=== PATIENT | female | born 1970 | race Caucasian/White ===

== ENCOUNTER 2023-11-01 08:15 | Outpatient (RCR) | payer BC, SELFPAY | END 2024-02-29 23:59 | disposition home or self-care (01) | PROVIDERS: PCP Physician Assistant Medical; Visit Provider Physician Assistant Medical | DX: M25.562 Pain in left knee (principal); G89.29 Other chronic pain; M25.662 Stiffness of left knee, not elsewhere classified; R29.898 Other symptoms and signs involving the musculoskeletal system; Z51.89 Encounter for other specified aftercare | CPT/HCPCS: 97110; 97162 ==

== ENCOUNTER 2024-01-16 21:55 | Emergency (ER) | payer BC, SELFPAY ==
[2024-01-16 21:57] VITALS: BP 173/105; PULSE 93; RESP 20; TEMP 36.3; O2SAT 96; BMI 36.3
--- NOTE | 2024-01-16 22:19 | ED.GENADULT ---
HPI - General Adult General Chief complaint: Chest Pain Stated complaint: heartburn/vomited Time Seen by Provider: 01/16/24 21:58 History of Present Illness HPI narrative: This 53-year-old female comes in reporting an episode of vomiting and which she describes as heartburn. She states that she has taken Tums in the past which has provided relief for heartburn symptoms but today her pain was more intense. She did not have any lightheadedness, shortness of breath, diaphoresis. She does not report any exercise intolerance. Related Data Home Medications ?Medication ?Instructions ?Recorded ?Confirmed cetirizine 10 mg tablet 10 mg PO QDAY PRN 03/24/22 01/16/24 fluticasone propionate 50 1 spray intranasal QDAY 03/24/22 03/28/22 mcg/actuation nasal spray,suspension (Flonase Allergy Relief) losartan 50 mg tablet 50 mg PO QDAY 03/24/22 01/16/24 vortioxetine 20 mg tablet 20 mg PO DAILY 01/16/24 01/16/24 (Trintellix) Previous Rx's ?Medication ?Instructions ?Recorded pantoprazole 20 mg tablet,delayed 20 mg PO DAILY #20 tabs 01/16/24 release (Protonix) Allergies Allergy/AdvReac Type Severity Reaction Status Date / Time bupropion Allergy extreme Verified 03/28/22 12:49 anger Sulfa (Sulfonamide Allergy severe low Verified 03/28/22 12:49 Antibiotics) blood platelets 12/30/21 latex AdvReac Rash Verified 03/28/22 12:49 Review of Systems Status of ROS: Reports: 10 or more systems reviewed and unremarkable except as noted in History and below Narrative: Constitutional: No fevers, no weight gain or loss. Eyes: No discharge. No vision changes. HENT: No congestion, no sore throat, no ear pain. Cardiovascular: No palpitations. Respiratory: No shortness of breath, no wheezes, no cough. Gastrointestinal: No abdominal pain, no diarrhea. Genitourinary: No dysuria, no hematuria. Musculoskeletal: Normal range of motion. Skin: No rashes, no pruritis. Neurological: No dizziness, weakness, sensory change, speech change. Endo/Heme/Allergies: No bruising or bleeding. No polydipsia. Pysch: no suicidality, no anxiety, no insomnia. All other systems reviewed and are negative. PFSH PFSH Medical History (Updated 01/16/24 @ 23:28 by Juan Denton MD) Degenerative tear of medial meniscus of left knee ?M23.204 - Derangement of unspecified medial meniscus due to old tear or injury, left knee (ICD-10) Surgical History History of hernia repair ?Z98.890 - Other specified postprocedural states (ICD-10) ?Z87.19 - Personal history of other diseases of the digestive system (ICD-10) History of cholecystectomy ?Z90.49 - Acquired absence of other specified parts of digestive tract (ICD-10) Family History Mother Diabetes Small cell lung cancer Father COPD (chronic obstructive pulmonary disease) Diabetes Social History Smoking Status: Never smoker Do you use any of these nicotine containing products: None Second hand tobacco smoke exposure: No How often do you have a drink containing alcohol: never AUDIT-C Alcohol total score: 0 Non-prescribed substance use: denies use service: No Exam Narrative: Exam Narrative: Constitutional: Well-developed, well-nourished, no acute distress. HEENT: Normocephalic, atraumatic. Neck: Normal range of motion. Nontender. Supple. Heart: Regular. No murmurs. Normal rate. Intact distal pulses. Lungs: Clear to auscultation. No chest discomfort. No wheezes, rhonchi, or rales. Abdomen: Normal bowel sounds. Nontender. No rebound tenderness. Genitalia: Deferred. Back: No midline tenderness. Normal range of motion. Extremities: Normal range of motion. No injury. Skin: Intact. No rash. Warm. No erythema or pallor. Neurologic: No altered sensation. No weakness. Alert and oriented. Psychiatric: No suicidality. No anxiety or depression. No insomnia. Nursing notes and vitals signs are reviewed. Const: Vital Signs, click to edit/add: Vital Signs - 24 hr 01/16/24 21:57 Temperature 97.3 F L Pulse Rate [Pulse Oximeter] 93 Respiratory Rate 20 Blood Pressure [Ri ght Upper Arm] 173/105 H Pulse Oximetry 96 Oxygen Delivery Me thod Room Air Course Vital Signs Vital signs: Initial Vital Signs Temperature 97.3 F L 01/16/24 21:57 Temperature Source Temporal Artery Scan 01/16/24 21:57 Pulse Rate 93 01/16/24 21:57 Respiratory Rate 01/16/24 21:57 Blood Pressure 173/105 H 01/16/24 21:57 Blood Pressure Mean 127 H 01/16/24 21:57 Blood Pressure Position Sitting 01/16/24 21:57 Pulse Oximetry 96 01/16/24 21:57 Oxygen Delivery Method Room Air 01/16/24 21:57 Vital Signs Temperature 97.3 F L 01/16/24 21:57 Pulse Rate 93 01/16/24 21:57 Respiratory Rate 01/16/24 21:57 Blood Pressure 173/105 H 01/16/24 21:57 Pulse Oximetry 96 01/16/24 21:57 Oxygen Delivery Method Room Air 01/16/24 21:57 Temperature 97.3 F L 01/16/24 21:57 Pulse Rate 93 01/16/24 21:57 Respiratory Rate 01/16/24 21:57 Blood Pressure 173/105 H 01/16/24 21:57 Pulse Oximetry 96 01/16/24 21:57 Oxygen Delivery Method Room Air 01/16/24 21:57 Medications Administered Medications: Discontinued Medications Generic Name Dose Route Start Last Admin Trade Name Freq PRN Reason Stop Dose Admin Lidocaine/Aluminum/Magnesium/Simeth 30 ml 01/16/24 22:18 01/16/24 22:26 Gi Cocktail (Visc Lido/Antacid) 30 Ml PO 01/16/24 22:19 30 ml ONCE ONE Administration Medical Decision Making MDM Narrative Medical decision making narrative: This patient comes in with an episode of vomiting and reports a history of heartburn that is not adequately managed with Tums which typically works for her. An EKG was obtained which shows normal sinus rhythm without any ST or T-wave abnormalities. The patient is not showing any other signs or symptoms that would be suspicious for a cardio or pulmonary cause for her symptoms. I did discuss lab and imaging studies with the patient and in a process of shared decision making these were declined for now. She did receive a GI cocktail which brought some relief to her symptoms. She also received an oral dose of Pepcid. I did provide prescription for Protonix as her symptoms are likely due to reflux esophagitis. ECG Data Attestation: I personally reviewed and interpreted this ECG as follows: Interpretation: Normal sinus rhythm. Rate is 85 beats per minute. There are no ST or T-wave abnormalities. Discharge Plan Discharge Clinical Impression: Esophagitis, reflux Patient Disposition: Home, Self-Care Condition: Improved Additional Instructions: Take medication as prescribed and needed. Follow up with MD or return if symptoms are persistent or worsening. Prescriptions: New pantoprazole [Protonix] 20 mg tablet,delayed release (DR/EC) 20 mg PO DAILY Qty: 20 2RF No Action losartan 50 mg tablet 50 mg PO QDAY cetirizine 10 mg tablet 10 mg PO QDAY PRN fluticasone propionate [Flonase Allergy Relief] 50 mcg/actuation spray,suspension 1 spray intranasal QDAY Rx Instructions: administer into each nostril Trintellix 20 mg tablet 20 mg PO DAILY Follow Up/Referrals: Geraldine Garcia PAMicheleC [Primary Care Provider] - Stand Alone Forms: [employer] Info Instructions
[2024-01-16] MEDS: GI COCKTAIL (VISC LIDO/ANTACID) 30 ML PO (22:26)
[2024-01-16] MEDS: FAMOTIDINE 20 MG TABLET PO (23:31)
[2024-01-16 23:37] VITALS: BP 161/96
== END 2024-01-16 23:38 | disposition home or self-care (01) ==
PROVIDERS: Emergency Provider Emergency Medicine Emergency Medical Services; PCP Physician Assistant Medical
DX: K21.00 Gastro-esophageal reflux disease with esophagitis, without bleeding (principal)
CPT/HCPCS: 93005; 99283; 99284; A9270

== ENCOUNTER 2024-05-30 10:20 | Outpatient (CLI) | payer BC, SELFPAY ==
--- NOTE | 2024-05-30 11:31 | W.ANESCHARGE ---
Anesthesia Charges Start Date/Time Anesthesia Start Date: 05/30/24 Anesthesia Start Time: 11:04 Stop Date/Time Anesthesia Stop Date: 05/30/24 Anesthesia Stop Time: 11:29
--- NOTE | 2024-05-30 11:51 | W.ANESCHARGE ---
Anesthesia Charges Start Date/Time Anesthesia Start Date: 05/30/24 Anesthesia Start Time: 11:04 Stop Date/Time Anesthesia Stop Date: 05/30/24 Anesthesia Stop Time: 11:29
== END 2024-05-30 10:21 | disposition home or self-care (01) ==
LOC: OP CLINIC 10:21
PROVIDERS: PCP Physician Assistant Medical; Visit Provider Internal Medicine Gastroenterology
DX: Z12.11 Encounter for screening for malignant neoplasm of colon (principal); D12.0 Benign neoplasm of cecum; D12.8 Benign neoplasm of rectum; K64.8 Other hemorrhoids
CPT/HCPCS: 00811; 45385; 88305; J2704

== ENCOUNTER 2024-09-11 15:27 | Emergency (ER) | payer BC, SELFPAY ==
[2024-09-11] VITALS (36 sets, daily range): BP systolic 138–168; BP diastolic 85–109; PULSE 67–86; RESP 0–33; TEMP 36.3; O2SAT 91–99; BMI 38.4
--- OUTSIDE RECORDS SUMMARY | 2024-09-11 15:29 | XMS_ITS | Clinical Summary ---
Author Organization [employer] [facility] Address [place], [place] [address] Care Team Providers Care Belting Inspector Name Role Phone Geraldine Garcia Primary Care Provider Allergies Active Allergy Reactions Criticality Noted Date Comments Latex Rash 09/23/2009 Sulfa (Sulfonamide Antibiotics) Thrombocytopenia,Oth er - Describe In Comment Field High 12/22/2006 Low blood platelets Bupropion Other - Describe In Comment Field 04/20/2009 agitated with the long acting formulation Medications cetirizine (WAL-ZYR, CETIRIZINE,) 10 mg tabletIndication s:Chronic allergic rhinitis Take 1 tablet by mouth once daily. 90 tablet 3 08/19/19 19 Active traZODone (DESYREL) 50 mg tabletIndication s:Depression, major, single episode, moderate (HC),Insomnia, idiopathic Take 1 Tablet (50 mg) by mouth at bedtime. 90 Tablet 08/02/19 23 Active vortioxetine (Trintellix) 20 mg tabletIndication s:Depression, major, single episode, moderate (HC) TAKE ONE TABLET BY MOUTH EVERY DAY 90 Tablet 1 02/24/20 24 Active polyethylene glycol-electroly te (GOLYTELY) 236-22.74-6.74 -5.86 gram suspensionIndica tions:Encounter for screening colonoscopy Drink 2 liters (1/2 of prep) the day before colonoscopy and drink 2 liters (other 1/2 of prep) 6 hours before colonoscopy appointment. 4000 mL 03/19/20 24 Active fluticasone (50 mcg per actuation) nasal solution (FLONASE)Indicat ions:Non-seasona l allergic rhinitis due to pollen,Acute non-recurrent frontal sinusitis,Acute non-recurrent maxillary sinusitis SPRAY ONE SPRAY INTO EACH NOSTRIL TWICE A DAY. 16 g 5 04/22/20 24 Active CPAPIndications: CHACHO (obstructive sleep apnea) RESMED CPAP (E0601) machine for home use at pressure: 5-15cmw, Choice of mask (A7030 or A7034) w/full face cushion (A7031) x1/mo, nasal cushion (A7032) x2/mo, or nasal pillows (A7033) x 2/mo; Length of Need: 99 months; Frequency of use: Daily 1 Each 04/22/20 24 Active triamcinolone 0.5 % creamIndications :Dermatitis Apply topically to affected area(s) three times daily. 15 g 05/07/20 24 Active buPROPion 75 mg HCl tabletIndication s:Depression, major, single episode, moderate (HC) Take 1 Tablet (75 mg) by mouth once daily. Based on updated ISMP guidelines, DO NOT crush or chew. 90 Tablet 1 07/09/20 24 Active desoximetasone (TOPICORT) 0.05 % gelIndications:C hronic eczema Apply topically to affected area(s) two times daily. 30 g 3 07/09/20 24 Active losartan (COZAAR) 100 mg tabletIndication s:HTN (hypertension) Take 1 Tablet (100 mg) by mouth once daily. 30 Tablet 08/29/19 25 Active losartan (COZAAR) 50 mg tabletIndication s:Essential hypertension Take 1 Tablet (50 mg) by mouth once daily. 90 Tablet 2 05/12/20 24 025 Discontin ued(*Medi cation adjustmen t) lisinopriL (PRINIVIL; ZESTRIL) 10 mg tabletIndication s:HTN (hypertension) Take 1 Tablet (10 mg) by mouth once daily. 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 Fatigue 05/12/2011 Seasonal affective disorder 04/20/2009 Mixed hyperlipidemia 07/31/2007 Obesity, unspecified 07/09/2007 Major depressive disorder, r ecurrent episode, in full remission 07/09/2007 Resolved Problems Problem Noted Date Diagnosed Date Resolved Date Major depressive disorder, r ecurrent episode, unspecified 07/09/2007 07/09/2007 Encounters Date Type Department Care Team Description 09/10/2024 9:15 AM HARBOR TUG CAPTAIN Office Visit [facility] [address] [place] [address] Chichi Luque LICSW Individual Therapy 09/10/2024 Nurse Triage [facility] [address] [place] [address] Geraldine Garcia PA Blood Pressure 09/10/2024 Travel 08/29/2024 Telephone [facility] [address] [place] [address] Geraldine Garcia PA Medication Management (Blood pressure) 08/18/2024 9:15 AM HARBOR TUG CAPTAIN Office Visit [facility] [address] [place] [address] Chichi Luque LICSW Individual Therapy 08/18/2024 Travel 07/16/2024 8:30 AM HARBOR TUG CAPTAIN Office Visit [facility] [address] [place] [address] Chichi Luque LICSW Individual Therapy 07/16/2024 Travel 07/09/2024 3:00 PM HARBOR TUG CAPTAIN Office Visit [facility] [address] [place] [address] Geraldine Garcia PA Medication Management (Follow up on Wellbutrin, going good ) 07/09/2024 Travel 07/02/2024 8:30 AM HARBOR TUG CAPTAIN Office Visit [facility] [address] [place] [address] Chichi Luque LICSW Individual Therapy; Trmt Plan 07/02/2024 Travel 06/25/2024 3:00 PM HARBOR TUG CAPTAIN Office Visit [facility] [address] [place] [address] Gearldine Garcia PA Medication Management (Discuss possible increase or other options) 06/25/2024 Travel 06/19/2024 Telephone [facility] [address] [place] [address] Geraldine Garcia PA Medication Management (vortioxetine (Trintellix) 20 mg tablet) 06/18/2024 9:15 AM HARBOR TUG CAPTAIN Office Visit [facility] [address] [place] [address] Chichi Luque LICSW Individual Therapy 06/18/2024 Travel from Last 3 Months Immunizations Name Administration Dates Next Due Td (Age >=7 Years) 07/30/2009,08/09/2000 Tdap 05/02/2012,05/02/2012 Family History Medical History Relation Name Comments Arrhythmia Brother 2 Kane ablation x 2 Mitral valve prolapse Brother 2 Kane Diabetes Father Ru b 1946; started Insulin 08/2009 Heart Disease Father Ru stents; Pacema ker 07/2009 Hyperlipidemia Father Ru Hypertension Father Ru Other Father Ru COPD Cancer Maternal Grandmother bone Diabetes Maternal Grandmother Cancer Mother Rocoí d 54 yo lung CA Diabetes Mother [place] Diabetes Paternal Grandmother Anesthesia Problem No Family History Blood Disease No Family History Cancer-breast No Family History Cancer-ovarian No Family History Relation Name Status Comments Brother 1 Phani Alive IBS Brother 2 Kane Alive Father Ru Alive Maternal Grandmother Mother Rocío (Age 54) Paternal Grandmother Social History Tobacco Use Types Packs/Day Years Used Date Smoking Tobacco: Never Smokeless Tobacco: Never Tobacco Cessation:Counseling Given: Yes Alcohol Use Standard Drinks/Week Comments Yes 3 (1 standard drink = 0.6 oz pur e alcohol) wine 3-4 glasses/week PHQ-2 Answer Date Recorded PHQ-2 TOTAL SCORE 2 08/02/2022 Social Connections Answer Date Recorded Do you often feel lonely or isolated from those around you? 0 01/17/2024 Financial Resource Strain Answer Date R ecorded Difficulty of Paying Living Expenses 3 01/17/2024 Difficulty of Paying Living Expenses Not on file 01/17/2024 Food Insecurity Answer Date Recorded Do you worry your food will run out before you are able to buy more? 1 01/17/2024 Transportation Needs Answer Date Record ed Does lack of transportation keep you from medica l appointments? 1 01/17/2024 Does lack of transportation keep you from work, meetings or getting things that you need? 1 01/17/2024 Housing Stability Answer Date Recorded What is your housing situation today? 1 01/17/2024 Utilities Answer Date Recorded Do you have trouble paying f or utilities (for example, heat, electricity, water, phone)? 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[employer] Not on file Not on file Not on file Obstetrics History Para Term AB IAB SAB Ectopic Multiple Livin g Live Births 4 3 3 0 1 0 1 0 0 3 Date Outcome GA Total Labor Labor/2nd/3rd Weight Sex Type Anes PTL Neema A1 A5 Name Clin Term Term Term SAB Comments vaginal delivery x3 Last Filed Vital Signs Vital Sign Reading Time Taken Comments Blood Pressure 132/85 07/09/2024 3:15 PM HARBOR TUG CAPTAIN Pulse 90 07/09/2024 3:15 PM HARBOR TUG CAPTAIN Temperature 37.1 C (98.7 F) 09/17/2023 9:00 AM HARBOR TUG CAPTAIN Respiratory Rate - - Oxygen Saturation 97% 04/22/2024 8:39 AM CDT Inhaled Oxygen Concentration - - Weight 112 kg (247 lb) 07/09/2024 3:15 PM HARBOR TUG CAPTAIN Height 166.8 cm (5' 5.67) 04/22/2024 8:39 AM CD T Body Mass Index 40.27 04/22/2024 8:39 AM CDT Plan of Treatment Upcoming Encounters Date Type Department Care Team (Late st Contact Info) Description 09/12/2024 7:50 AM HARBOR TUG CAPTAIN Office Visit [facility] [address] [place] [address] Geraldine Garcia PA [address] [place] [address] 09/17/2024 11:50 AM HARBOR TUG CAPTAIN Office Visit [facility] [address] [place] [address] Geraldine Garcia PA [address] [facility] [place] [address] 10/01/2024 8:30 AM HARBOR TUG CAPTAIN Office [facility] [address] [facility] [place] [phone] Chichi Luque LICSW [address] [place] [address] 10/22/2024 8:30 AM CDT Office Visit [facility] [address] [place] [phone] Chichi Luque LICSW [address] [place] [address] 11/12/2024 8:30 AM CDT Office Visit [facility] [address] [facility] [place] [phone] Chichi Luque LICSW [address] [place] [address] 12/03/2024 8:30 AM CDT Office Visit [facility] [address] [facility] [place] [phone] Chichi Luque LICSW [address] [place] [address] Health Maintenance Due Date Last Done Comments HIV for age 15-65 12/01/1987 Hepatitis C screening for ag e 18-79 1990 Tetanus booster 05/02/2022 05/02/2012, 10/2011, 07/30/2009, Additional history exists Pneumococcal series for age 50+ (1 of 1 - PCV) 2022 Zoster (shingles) series for age 50+ (1 of 2) 2022 Depression screening for age 12+ 08/02/2023 08/02/2022, 08/02/2022, 05/08/2022, Additional history exists COVID-19 vaccine series (1 - 2023- season) 2024 Influenza for age 50-64 03/30/2024 Mammogram for age 45-75 01/20/2025 01/21/20, 01/17/2023, 06/10/2021, Additional history exists BMI (ht and wt on same day) for age 18+ 04/22/2025 04/22/2024, 09/17/2023, 08/20/2023, Additional history exists Pap test for age 21-65 05/31/2026 , 05/31/2021, 04/28/2016, Additional history exists Colonoscopy through age 75 05/30/202705/30, 05/30/2024, 05/30/2024 Lipids for age 45-75 03/04/2029 03/04/2024, 01/17/2023, 04/07/2022, Additional history exists Tdap Completed 05/02/2012, 05/02/2012 Procedures Procedure Name Priority Date/Time Associated Diagnosis Comments COLONOSCOPY SCREENING Routine 05/30/2024 7:28 AM CDT Screening for colon cancer LIPID PANEL W REFLEX MEASURED LDL Routine 03/04/2024 11:21 AM CDT Screening cholesterol level XR MAMMO KIRAN BILAT SCREEN Routine 01/21/2024 4:50 PM CDT Visit for screening mammogram HPV HIGH RISK Routine 05/31/2021 12:34 PM CDT Screening for cervical cancer from Last 3 Months or Most Recently Relevant to Health Maintenance Results * SCAN-COLONOSCOPY (05/30/2024 12:00 AM CDT) us Scanner OTHER Final Result * (ABNORMAL) LIPID PANEL W REFLEX MEASURED LDL (03/04/2024 11:21 AM CDT) CHOLESTEROL,TOTAL 223(H) 100 - 199 mg/dL 03/05/2024 3:39 AM CDT [facility] Comment: Cholesterol, Total Reference Ranges Desirable <200 mg/dL Borderline 200-239 mg/dL High >=240 mg/dL TRIGLYCERIDES 298(H) <150 mg/dL 03/05/2024 3:39 AM CDT [facility] HDL CHOLESTEROL 37(L) >40 mg/dL 3:39 AM CDT [facility] NON-HDL CHOLESTEROL 186(H) <145 mg/dl 03/05/2024 3:39 AM CDT [facility] CHOL/HDL RATIO 6.03(H) <4.50 03/05/2024 3:39 AM CDT [facility] LDL CHOLESTEROL 126 <=130 mg/dL 03/05/2024 3:39 AM CDT [facility] VLDL CHOLESTEROL 60(H) <=30 mg/dL 03/05/2024 3:39 AM CDT [facility] PROVIDER ORDERED STATUS RANDOM 03/05/2024 3:39 AM CDT [facility] Blood BLOOD SPECIMEN / Unknown Venipuncture / Unknown 03/04/2024 11:21 AM CDT 03/04/2024 11:22 AM CDT us Geraldine PIMENTEL CHEMISTRY Final R esult [facility] [address] [place] [address], * XR MAMMO KIRAN BILAT SCREEN (01/21/2024 4:50 PM CDT) Anatomical Region Laterality Modality BREASTS, Breast Left, Breast Right Bilateral Mammography Impressions 01/22/2024 12:48 PM CDT There is no radiographic evidence for malignancy. Recommend annual mammograms. MAMMOGRAM ASSESSMENT: ACR 1 Negative PATIENTS: You will also receive a letter with your examination results in an easy to read format. If you have questions about your results, please contact your referring provider. Narrative 01/22/2024 12:48 PM CDT For Patients: As a result of the Century Cures Act, medical imaging exams and procedure reports are released immediately into your electronic medical record. You may view this report before your referring provider. If you have questions, please contact your health care provider. XR MAMMO KIRAN BILAT SCREEN [[id number]] CLINICAL HISTORY: This is an asymptomatic 53 y.o. patient. INDICATION FOR EXAM: Mammogram Screening. TECHNIQUE: CC & MLO views were obtained. This study was evaluated with the assistance of Computer-Aided Detection. Breast Tomosynthesis was used in interpretation. COMPARISON FILM: Yes 01/17/23 [facility] 06/10/21 [facility] FINDINGS: There are scattered areas of fibroglandular density. There are no dominant masses, suspicious micro calcifications or areas of architectural distortion. us Geraldine PIMENTEL MAMMO Final R esult * HPV HIGH RISK (05/31/2021 12:34 PM CDT) TYPE 16 Negative Negative 06/02/2021 3:09 PM CDT [facility] TYPE 18 Negative Negative 06/02/2021 3:09 PM CDT [facility] OTHER HIGH RISK TYPES Negative Negative 06/02/2021 3:09 PM CDT [facility] Other (Cervical) Non-Blood / Unknown 05/31/2021 12:34 PM CDT 06/01/2021 9:59 AM CDT Narrative [facility] - 06/02/2021 3:09 PM CDT HPV types 16, 18, 31, 33, 35, 39, 45, 51, 52, 56, 58, 59, 66 and 68 DNA were undetectable or below the pre-set threshold. Methodology: Nephrosas 4800 HPV Test us Geraldine PIMENTEL MICROBIOLOGY Final R esult 5 CUPS and some sugar [facility] [address] [place] [address], [place] from Last 3 Months or Most Recently Relevant to Health Maintenance Insurance [facility] Care Teams Belting Inspector Relationship Specialty Start Date End Date Geraldine Garcia [place] [address] PCP - General Physician Film Color Tester 12/08/21
--- OUTSIDE RECORDS SUMMARY | 2024-09-11 15:29 | XMS_ITS | Clinical Summary ---
Author Organization [facility] Address [address] [place] [address] Care Team Providers Care [employer] Name Role Phone Unassigned, Provider Primary Care Provider Unava ilable Source Comments You are receiving this document as you are listed as the primary care provider,follow-up provider, or the patient has been referred to you for consultation.This is in compliance with the Medicare and[facility] EHR Incentive Program,which states Providers who transition their patient to another setting of careor provider of care or refers their patient to another provider of care shouldprovide summary care record for each transition of care or referral. [place] Allergies Active Allergy Reactions Criticality Noted Date Comments Sulfa Antibiotics Other, see comments High 0 Low blood platelets Medications sertraline (ZOLOFT) 50 MG tablet 01/26/2020 Active losartan (COZAAR) 50 MG tablet 02/17/2020 Active Active Problems Problem Noted Date Diagnosed Date Essential hypertension 02/19/2020 Anxiety 02/19/2020 Immunizations Immunization Administration Dates Next Due Flu Vac Preserv Free (3+yrs) 05/21/2013,05/02/20 12,05/18/2011 Influenza, Unspecified Formulation 06/12/2017(De ferred: Other) Tdap 05/02/2012 Social History Tobacco Use Types Packs/Day Years Used Date Smoking Tobacco: Never Smokeless Tobacco: Never PHQ-2 Answer Date Recorded PHQ-2 Score 0 02/19/2020 Comments No Sex and Gender Information Value Date Recorded Sex Assigned at Not on file Legal Sex Female 4:33 AM CDT Gender Identity Not on file Sexual Orientation Not on file Last Filed Vital Signs Vital Sign Reading Time Taken Comments Blood Pressure 141/90 02/19/2020 1:33 PM CDT Pulse 76 02/19/2020 1:33 PM CDT Temperature 36.7 C (98.1 F) 02/19/2020 1:33 PM CDT Respiratory Rate - - Oxygen Saturation 99% 02/19/2020 1:33 PM CDT Inhaled Oxygen Concentration - - Weight 103 kg (227 lb) 02/19/2020 1:33 PM CDT Height 166.4 cm (5' 5.5) 02/19/2020 1:33 PM CDT Body Mass Index 37.2 02/19/2020 1:33 PM CDT Plan of Treatment Health Maintenance Due Date Last Done Comments Cervical Cancer Screening Due 1972 Colon Cancer Screening Plan Due 1972 Hep C Screening (Preventive Services) 1972 Mammogram 1972 HIV Screening (Preventive Services) 1988 Adult Preventive Visit 1990 HepB (1) 12/01/1991 Cholesterol 2017 DTaP/Tdap/Td (2 - Tdap) 05/02/2022 05/02/2012 Zoster/Shingles (1 of 2) 2022 COVID-19 Vaccine (1 - 2023-2 5 season) 2024 Influenza (#1) 2024 05/21/2013, 05/02/2012, 05/18/2011 HepA Aged Out No longer eligi ble based on patient's age to complete this topic Hib Aged Out No longer eligi ble based on patient's age to complete this topic IPV (Polio) Aged Out No longer eligi ble based on patient's age to complete this topic MCV4 Aged Out No longer eligi ble based on patient's age to complete this topic Pneumococcal Aged Out No longer eligi ble based on patient's age to complete this topic Insurance BCBS OUT OF STATE [facility] OUT OF STATE Care Teams [employer] Relationship Specialty Start Date End Date Unassigned, Provider [address] [place] [address] PCP - General 07/07/00
--- NOTE | 2024-09-11 16:30 | ED.GENADULT ---
HPI - General Adult General Time Seen by Provider: 16:30 Date Seen: 09/11/24 Chief complaint: Hypertension Stated complaint: High BP Time Seen by Provider: 09/11/24 16:05 Source: patient and family Limitations: no limitations History of Present Illness HPI narrative: Candice is a 53-year-old female past medical history includes hypertension, hyperlipidemia depression presents emerged department via private car with daughter with elevated blood pressure readings. patient states she noticed elevated blood pressure readings after [place], she was started on losartan 50 mg daily, she continued to have elevated blood pressures and this was increased on 08/29 100 mg daily. patient was also started on a Wellbutrin last May, she denies any new anxiety or depression, she does have stressors. yesterday she was taking her blood pressure because she was feeling unwell, they were elevated, systolics between 140 and 170, diastolics between 100-110. she feels generalized weakness, she did have a headache, she did take Excedrin which helped with the symptoms, this is a typical headache, over he does have follow-up with her primary care provider about these elevated blood pressure readings in the next few weeks. will patient denies any chest pain but has had some worsening difficulty her taking in breaths. she had vomiting over the weekend similar symptoms to with family members, she denies any of that now, no fevers or chills, no nausea vomiting, she denies any chest pain or abdominal pain. patient has been eating and drinking less. patient has had episodes of lightheadedness, she denies any dizziness, she denies any headache at this time. No visual changes, focal weakness or any other deficits. She has no history of any coronary artery disease. Related Data Home Medications ?Medication ?Instructions ?Recorded ?Confirmed cetirizine 10 mg tablet 10 mg PO QDAY PRN 03/24/22 08/03/24 fluticasone propionate 50 1 spray intranasal QDAY 03/24/22 08/03/24 mcg/actuation nasal spray,suspension (Flonase Allergy Relief) losartan 50 mg tablet 50 mg PO QDAY 03/24/22 08/03/24 vortioxetine 20 mg tablet 20 mg PO DAILY 01/16/24 08/03/24 (Trintellix) Previous Rx's ?Medication ?Instructions ?Recorded pantoprazole 20 mg tablet,delayed 20 mg PO DAILY #20 tabs 01/16/24 release (Protonix) azithromycin 250 mg tablet See Rx Instructions PO .COMPLEX #6 09/11/24 tabs azithromycin 250 mg tablet See Rx Instructions PO .COMPLEX #6 09/11/24 tabs Allergies Allergy/AdvReac Type Severity Reaction Status Date / Time bupropion Allergy extreme Verified 08/03/24 13:04 anger Sulfa (Sulfonamide Allergy severe low Verified 08/03/24 13:04 Antibiotics) blood platelets 12/30/21 latex AdvReac Rash Verified 08/03/24 13:04 Review of Systems Status of ROS: Reports: 10 or more systems reviewed and unremarkable except as noted in History and below [facility] Medical History Degenerative tear of medial meniscus of left knee ?M23.204 - Derangement of unspecified medial meniscus due to old tear or injury, left knee (ICD-10) Surgical History History of hernia repair ?Z98.890 - Other specified postprocedural states (ICD-10) ?Z87.19 - Personal history of other diseases of the digestive system (ICD-10) History of cholecystectomy ?Z90.49 - Acquired absence of other specified parts of digestive tract (ICD-10) Family History Mother Diabetes Small cell lung cancer Father COPD (chronic obstructive pulmonary disease) Diabetes Social History Smoking Status: Never smoker Do you use any of these nicotine containing products: None Second hand tobacco smoke exposure: No How often do you have a drink containing alcohol: 2-4 times a month AUDIT-C Alcohol total score: 2 Non-prescribed substance use: denies use service: No Exam Narrative: Exam Narrative: General: no obvious distress sitting comfortably HEENT: pupils equal round reactive to light, extraocular muscles intact lungs: CTA BL heart: normal sinus rhythm S1-S2 abdomen: soft nontender, bowel sounds present muscle skeletal: moving upper lower extremities no difficulty, +5 upper lower extremities Neuro: GCS 15, no focal deficits psych: normal mood and af Const: Vital Signs, click to edit/add: Vital Signs - 24 hr 09/11/24 15:34 09/11/24 15:46 09/11/24 15:47 Temperature 97.3 F L Pulse Rate 79 78 Pulse Rate [Pulse Oximeter] 86 Respiratory Rate 20 Blood Pressure 146/105 H Blood Pressure [Le ft Upper Arm] 165/101 H Blood Pressure [or thostatic lying Le ft Arm] Blood Pressure [or thostatic sitting Left Arm] Blood Pressure [or thostatic standing Left Arm] Pulse Oximetry 96 93 95 Oxygen Delivery Me thod Room Air 09/11/24 16:00 09/11/24 16:02 09/11/24 16:03 Temperature Pulse Rate 76 74 76 Pulse Rate [Pulse Oximeter] Respiratory Rate 15 0 L Blood Pressure 141/97 H Blood Pressure [Le ft Upper Arm] Blood Pressure [or thostatic lying Le ft Arm] Blood Pressure [or thostatic sitting Left Arm] Blood Pressure [or thostatic standing Left Arm] Pulse Oximetry 95 95 93 Oxygen Delivery Me thod 09/11/24 16:15 09/11/24 16:17 09/11/24 16:30 Temperature Pulse Rate 72 71 74 Pulse Rate [Pulse Oximeter] Respiratory Rate 5 L 9 L 5 L Blood Pressure 145/94 H Blood Pressure [Le ft Upper Arm] Blood Pressure [or thostatic lying Le ft Arm] Blood Pressure [or thostatic sitting Left Arm] Blood Pressure [or thostatic standing Left Arm] Pulse Oximetry 96 98 96 Oxygen Delivery Me thod 09/11/24 16:31 09/11/24 16:45 09/11/24 16:47 Temperature Pulse Rate 69 Pulse Rate [Pulse Oximeter] Respiratory Rate 4 L 6 L 8 L Blood Pressure 141/103 H 138/85 Blood Pressure [Le ft Upper Arm] Blood Pressure [or thostatic lying Le ft Arm] Blood Pressure [or thostatic sitting Left Arm] Blood Pressure [or thostatic standing Left Arm] Pulse Oximetry 91 Oxygen Delivery Me thod 09/11/24 16:49 09/11/24 16:50 09/11/24 16:59 Temperature Pulse Rate Pulse Rate [Pulse Oximeter] Respiratory Rate 10 L 30 H Blood Pressure 151/101 H 155/102 H Blood Pressure [Le ft Upper Arm] Blood Pressure [or thostatic lying Le ft Arm] 138/85 Blood Pressure [or thostatic sitting Left Arm] 151/101 H Blood Pressure [or thostatic standing Left Arm] 155/102 H Pulse Oximetry Oxygen Delivery Me thod 09/11/24 17:00 09/11/24 17:02 09/11/24 17:15 Temperature Pulse Rate 79 72 72 Pulse Rate [Pulse Oximeter] Respiratory Rate 11 L 0 L 9 L Blood Pressure 162/109 H Blood Pressure [Le ft Upper Arm] Blood Pressure [or thostatic lying Le ft Arm] Blood Pressure [or thostatic sitting Left Arm] Blood Pressure [or thostatic standing Left Arm] Pulse Oximetry 93 96 [facility] 17:17 09/11/24 17:18 09/11/24 17:30 Temperature Pulse Rate 68 71 76 Pulse Rate [Pulse Oximeter] Respiratory Rate 10 L 18 27 H Blood Pressure 152/94 H Blood Pressure [Le ft Upper Arm] Blood Pressure [or thostatic lying Le ft Arm] Blood Pressure [or thostatic sitting Left Arm] Blood Pressure [or thostatic standing Left Arm] Pulse Oximetry 98 98 95 [facility] 17:32 09/11/24 17:45 09/11/24 17:47 Temperature Pulse Rate 69 69 70 Pulse Rate [Pulse Oximeter] Respiratory Rate 1 L 15 Blood Pressure 167/99 H 162/100 H Blood Pressure [Le ft Upper Arm] Blood Pressure [or thostatic lying Le ft Arm] Blood Pressure [or thostatic sitting Left Arm] Blood Pressure [or thostatic standing Left Arm] Pulse Oximetry 97 98 99 [facility] 18:00 09/11/24 18:02 09/11/24 18:15 Temperature Pulse Rate 77 73 67 Pulse Rate [Pulse Oximeter] Respiratory Rate 33 H 10 L 12 Blood Pressure 164/99 H Blood Pressure [Le ft Upper Arm] Blood Pressure [or thostatic lying Le ft Arm] Blood Pressure [or thostatic sitting Left Arm] Blood Pressure [or thostatic standing Left Arm] Pulse Oximetry 96 96 96 [facility] 18:17 09/11/24 18:30 09/11/24 18:32 Temperature Pulse Rate 70 72 74 Pulse Rate [Pulse Oximeter] Respiratory Rate 9 L 8 L 12 Blood Pressure 161/100 H 168/100 H Blood Pressure [Le ft Upper Arm] Blood Pressure [or thostatic lying Le ft Arm] Blood Pressure [or thostatic sitting Left Arm] Blood Pressure [or thostatic standing Left Arm] Pulse Oximetry 97 96 97 Oxygen Delivery Me thod 09/11/24 18:45 09/11/24 18:47 09/11/24 19:00 Temperature Pulse Rate 68 73 73 Pulse Rate [Pulse Oximeter] Respiratory Rate 9 L 10 L 9 L Blood Pressure 165/99 H Blood Pressure [Le ft Upper Arm] Blood Pressure [or thostatic lying Le ft Arm] Blood Pressure [or thostatic sitting Left Arm] Blood Pressure [or thostatic standing Left Arm] Pulse Oximetry 97 95 97 Oxygen Delivery Me thod 09/11/24 19:02 09/11/24 19:15 09/11/24 19:17 Temperature Pulse Rate 71 74 Pulse Rate [Pulse Oximeter] Respiratory Rate 6 L 0 L Blood Pressure 143/103 H 158/103 H Blood Pressure [Le ft Upper Arm] Blood Pressure [or thostatic lying Le ft Arm] Blood Pressure [or thostatic sitting Left Arm] Blood Pressure [or thostatic standing Left Arm] Pulse Oximetry 97 97 Oxygen Delivery Me thod Course Course ED Course: AIDET performed. vitals show blood pressure 145/94, she is afebrile, normal heart rate, O2 sats greater than 98% on room air, workup will include IV peripheral, 0.9 normal saline bolus based on her lightheadedness, will obtain orthostatic blood pressure, EKG, troponin T, D-dimer, magnesium, CBC, CMP. , post signs of any hypertensive emergency or urgency, blood pressure has improved on its own. Differential diagnosis include but not limited to CAD, mi, PE, pneumothorax, pneumonia and aortic dissection. Other considerations include hypertensive emergency or urgency, anxiety, as well as other etiologies. Reevaluation(s) Time of Reevaluation #1: 17:16 Reevaluation #1: EKG shows a normal sinus rhythm, possible left atrial enlargement, bpm 86, no acute ST changes, CBC shows no leukocytosis or anemia, troponin point of care 0.00, D-dimer within normal limits, potassium 3.5, otherwise normal electrolytes, and normal renal function, mildly elevated LFTs, will obtain XR chest PA and lateral. Patient is doing well. Reevaluation #2: Imaging: Impression: [id number] central bronchial thickening with questionable early airspace opacity in the right lung base versus atelectasis. Reevaluation #3: Patient was updated on her imaging results, due to the mild to moderate central bronchial thickening with questionable early air pace opacity in the right lung base in her symptoms of shortness of breath, will plan to treat her with azithromycin over the next 5 days, her blood pressure has been normal eyes since being in the emergency department without intervention, symptoms have improved after receiving IV fluids, she has proper follow-up with primary care provider tomorrow, at that time discussion can be made about medication adjustments. Reasons to return were given. Vital Signs Vital signs: Initial Vital Signs Temperature 97.3 F L 09/11/24 15:34 Temperature Source Temporal Artery Scan 09/11/24 15:34 Pulse Rate 86 09/11/24 15:34 Respiratory Rate 20 09/11/24 15:34 Blood Pressure 165/101 H 09/11/24 15:34 Blood Pressure Mean 122 H 09/11/24 15:34 Blood Pressure Position Supine 09/11/24 15:34 Pulse Oximetry 96 09/11/24 15:34 Oxygen Delivery Method Room Air 09/11/24 15:34 Vital Signs Temperature 97.3 F L 09/11/24 15:34 Pulse Rate 86 09/11/24 15:34 Respiratory Rate 20 09/11/24 15:34 Blood Pressure 165/101 H 09/11/24 15:34 Pulse Oximetry 96 09/11/24 15:34 Oxygen Delivery Method Room Air 09/11/24 15:34 Temperature 97.3 F L 09/11/24 15:34 Pulse Rate 74 09/11/24 19:15 Respiratory Rate 0 L 09/11/24 19:15 Blood Pressure 158/103 H 09/11/24 19:17 Pulse Oximetry 97 09/11/24 19:15 Oxygen Delivery Method Room Air 09/11/24 15:34 Medications Administered Medications: Discontinued Medications Generic Name Dose Route Start Last Admin Trade Name Freq PRN Reason Stop Dose Admin Sodium Chloride 1,000 mls @ 1,000 mls/hr 09/11/24 16:29 09/11/24 18:08 0.9 % Sodium Chloride 1000 Ml IV 09/11/24 17:28 Infused .Q1H YADIRA Infusion Medical Decision Making Lab Data Labs: Lab Results 09/11/24 Range/Units 16:19 WBC 7.84 (4.50-11.00) K/uL RBC 4.71 (4.00-5.20) m/uL Hgb 14.5 (12.0-16.0) gm/dL Hct 42.7 (33.0-51.0) % MCV 91 (80-100) fL MCH 31 (26-34) pg MCHC 34 (32-36) gm/dL RDW Coeff of Kasandra 12.3 (11.5-15.5) % Plt Count 295 (140-440) K/uL Neut % (Auto) 56.5 (42.0-72.0) % Lymph % (Auto) 28.6 (20-44) % [place] % (Auto) 7.5 (0.0-11.0) % Eos % (Auto) 6.4 (0.0-7.0) % Baso % (Auto) 0.9 (0.0-3.0) % Neut # (Auto) 4.43 (1.7-7.0) K/uL Lymph # (Auto) 2.24 (0.90-2.90) K/uL [place] # (Auto) 0.60 (0.00-0.90) K/UL Eos # (Auto) 0.50 (0.00-0.50) K/uL Baso # (Auto) 0.07 (0.00-0.30) K/uL Abs Immat Gran (auto) 0.01 (0.00-0.30) K/uL Imm/Tot Granulo (auto) 0.1 % D-Dimer Quant (PE/DVT) 0.32 (0.00-0.50) ug/ml Sodium 140 (135-149) mmol/L Potassium 3.5 L (3.6-5.1) mmol/L Chloride 105 (96-114) mmol/L Carbon Dioxide 25 (20-32) mmol/L Anion Gap 10 (7-15) mEq/L BUN 17 (7-30) mg/dL Creatinine 0.6 (0.5-1.5) mg/dL Estimated Creat Clear 103.84 Estimated GFR 109 ml/min Glucose 91 (60-115) mg/dL Calcium 8.9 (8.4-10.6) mg/dL Magnesium 2.2 (1.5-2.6) mg/dL Total Bilirubin 0.8 (0.1-1.5) mg/dL AST 57 H (12-35) U/L ALT 112 H (4-35) U/L Alkaline Phosphatase 73 (40-150) U/L Total Protein 6.9 (6.0-8.3) g/dL Albumin 4.3 (3.3-5.0) g/dL POC Troponin I 0.00 L (0.01-0.04) ng/ml Discharge Plan Discharge Clinical Impression: Elevated blood pressure reading, Hypertension, Shortness of breath Patient Disposition: Home, Self-Care Condition: Improved Instructions: Hypertension (ED) Additional Instructions: To take the Azithromycin as directed, continue with losartan 100 mg, follow-up with primary care provider as scheduled tomorrow to discuss changes with medications. Return if any worsening symptoms. Activity Level: No Restrictions Prescriptions: New azithromycin 250 mg tablet See Rx Instructions .ROUTE .COMPLEX Qty: 6 0RF Rx Instructions: For 250 mg dose pack: take 500 mg today (day 1), then 250 mg for 4 days (days 2-5) azithromycin 250 mg tablet See Rx Instructions .ROUTE .COMPLEX Qty: 6 0RF Rx Instructions: For 250 mg dose pack: take 500 mg today (day 1), then 250 mg for 4 days (days 2-5) No Action losartan 50 mg tablet 50 mg PO QDAY cetirizine 10 mg tablet 10 mg PO QDAY PRN fluticasone propionate [Flonase Allergy Relief] 50 mcg/actuation spray,suspension 1 spray intranasal QDAY Rx Instructions: administer into each nostril Trintellix 20 mg tablet 20 mg PO DAILY pantoprazole [Protonix] 20 mg tablet,delayed release (DR/EC) 20 mg PO DAILY Qty: 20 2RF Follow Up/Referrals: Geraldine Garcia PA-C [Primary Care Provider] - Stand Alone Forms: Gusto Info Instructions
[2024-09-11 16:38] LABS: Basophils Absolute Auto 0.07 K/uL (0.00-0.30); Basophils Percent Auto 0.9 % (0.0-3.0); Eosinophils Percent Auto 6.4 % (0.0-7.0); Hematocrit 42.7 % (33.0-51.0); Hemoglobin* 14.5 gm/dL (12.0-16.0); Immature Granulocytes Abs Auto 0.01 K/uL (0.00-0.30); Immature Granulocytes Pct Auto 0.1 %; Lymphocytes Absolute Auto 2.24 K/uL (0.90-2.90); Lymphocytes Percent Auto 28.6 % (20-44); Mean Corpuscular HGB Conc 34 gm/dL (32-36); Mean Corpuscular Hemoglobin 31 pg (26-34); Mean Corpuscular Volume 91 fL (80-100); Monocytes Percent Auto 7.5 % (0.0-11.0); Neutrophils Absolute Auto 4.43 K/uL (1.7-7.0); Neutrophils Percent Auto 56.5 % (42.0-72.0); Platelet Count* 295 K/uL (140-440); RDW Coefficient of Variation % 12.3 % (11.5-15.5); Red Blood Count 4.71 m/uL (4.00-5.20); White Blood Count* 7.84 K/uL (4.50-11.00)
[2024-09-11 16:45] LABS: Slide Review Reflex No
[2024-09-11 16:51] LABS: Albumin* 4.3 g/dL (3.3-5.0); Chloride* 105 mmol/L (96-114); Sodium* 140 mmol/L (135-149)
[2024-09-11] MEDS: 0.9 % SODIUM CHLORIDE 1000 ml 1,000 ML IV (16:51)
[2024-09-11 16:52] LABS: Potassium* 3.5 mmol/L (3.6-5.1)
[2024-09-11 16:54] LABS: Alanine Aminotransferase* 112 U/L (4-35); Alkaline Phosphatase* 73 U/L (40-150); Anion Gap 10 mEq/L (7-15); Aspartate Amino Transferase* 57 U/L (12-35); Bilirubin Total* 0.8 mg/dL (0.1-1.5); Blood Urea Nitrogen* 17 mg/dL (7-30); Carbon Dioxide* 25 mmol/L (20-32); Creatinine* 0.6 mg/dL (0.5-1.5); Est. Creatinine Clearance* 103.84; Estimated Glomerular Filt Rate 109 ml/min; Glucose* 91 mg/dL (60-115); Total Protein* 6.9 g/dL (6.0-8.3)
[2024-09-11 16:55] LABS: Calcium* 8.9 mg/dL (8.4-10.6); Magnesium* 2.2 mg/dL (1.5-2.6)
[2024-09-11 16:56] LABS: D Dimer Quantitative* 0.32 ug/ml (0.00-0.50)
--- OUTSIDE RECORDS SUMMARY | 2024-09-11 17:07 | XMS_ITS | Clinical Summary ---
Author Organization [employer] [facility] Address [place], [place] [address] Care Team Providers Care Bi Report Developer Name Role Phone Geraldine Garcia Primary Care [...] Department Care Team Description 09/10/2024 9:15 AM CLIENT RELATIONS SPECIALIST Office Visit [facility] [address] [place] [place] [address] Chichi Luque LICSW Individual Therapy 09/10/2024 Nurse Triage [facility] [address] [place] [address] Geraldine Garcia PA Blood Pressure 09/10/2024 Travel 08/29/2024 Telephone [facility] [address] [place] [address] Geraldine Garcia PA Medication Management (Blood pressure) 08/18/2024 9:15 AM CLIENT RELATIONS SPECIALIST Office Visit [facility] [address] [place] [address] Chichi Luque LICSW Individual Therapy 08/18/2024 Travel 07/16/2024 8:30 AM CLIENT RELATIONS SPECIALIST Office Visit [facility] [address] [place] [place] [address] Chichi Luque LICSW Individual Therapy 07/16/2024 Travel 07/09/2024 3:00 PM CLIENT RELATIONS SPECIALIST Office Visit [facility] [address] [place] [address] Geraldine Garcia PA Medication Management (Follow up on Wellbutrin, going good ) 07/09/2024 Travel 07/02/2024 8:30 AM CLIENT RELATIONS SPECIALIST Office Visit [facility] [address] [place] [address] Chichi Luque LICSW Individual Therapy; Trmt Plan 07/02/2024 Travel 06/25/2024 3:00 PM CLIENT RELATIONS SPECIALIST Office Visit [facility] [address] [place] [address] Geraldine Garcia PA Medication Management (Discuss possible increase or other options) 06/25/2024 Travel 06/19/2024 Telephone [facility] [address] [place] [address] Geraldine Garcia PA Medication Management (vortioxetine (Trintellix) 20 mg tablet) 06/18/2024 9:15 AM CLIENT RELATIONS SPECIALIST Office Visit [facility] [address] [place] [address] Chichi Luque LICSW Individual Therapy 06/18/2024 Travel [...] Grandmother bone Diabetes Maternal Grandmother Cancer Mother Rocío d 54 yo lung CA Diabetes Mother [...] on file Legal Sex Female 6:19 AM CLIENT RELATIONS SPECIALIST Gender Identity Not on file Sexual Orientation Not on file 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 Not on file [...] Comments Blood Pressure 132/85 07/09/2024 3:15 PM CLIENT RELATIONS SPECIALIST Pulse 90 07/09/2024 3:15 PM CLIENT RELATIONS SPECIALIST Temperature 37.1 C (98.7 F) 09/17/2023 9:00 AM CLIENT RELATIONS SPECIALIST Respiratory Rate - - Oxygen Saturation 97% 04/22/2024 8:39 AM CDT Inhaled Oxygen Concentration - - Weight 112 kg (247 lb) 07/09/2024 3:15 PM CLIENT RELATIONS SPECIALIST Height 166.8 cm (5' 5.67) 04/22/2024 8:39 AM CD T Body Mass Index 40.27 04/22/2024 8:39 AM CDT Plan of Treatment Upcoming Encounters Date Type Department Care Team (Late st Contact Info) Description 09/12/2024 7:50 AM CLIENT RELATIONS SPECIALIST Office Visit [facility] [address] [place] [address] Geraldine Garcia PA [address] [place] [address] 09/17/2024 11:50 AM CLIENT RELATIONS SPECIALIST Office Visit [facility] [address] [place] [address] Geraldine Garcia PA [address] [facility] [place] [address] 10/01/2024 8:30 AM CLIENT RELATIONS SPECIALIST Office Visit [facility] [address] [facility] [place] [phone] Chichi Luque LICSW [address] [place] [address] 10/22/2024 8:30 AM CDT Office Visit [facility] [address] [place] [phone] Chichi Luque LICSW [address] [place] [address] 11/12/2024 8:30 AM CDT Office Visit [facility] [address] [facility] [place] [phone] Chichi Luque LICSW [address] [place] [address] 12/03/2024 8:30 AM CDT Office Visit [facility] [address] [facility] [place] [phone] Chichi Luque LICSW [address] [place] [address] Health Maintenance Due Date Last Done Comments [...] - 199 mg/dL 03/05/2024 3:39 AM CDT [facility] Comment: Cholesterol, Total Reference Ranges Desirable <200 mg/dL Borderline 200-239 mg/dL High >=240 mg/dL TRIGLYCERIDES 298(H) <150 mg/dL 03/05/2024 3:39 AM CDT [facility] HDL CHOLESTEROL 37(L) >40 mg/dL 3:39 AM CDT [facility] NON-HDL CHOLESTEROL 186(H) <145 mg/dl 03/05/2024 3:39 AM CDT [facility] CHOL/HDL RATIO 6.03(H) <4.50 03/05/2024 3:39 AM CDT [facility] LDL CHOLESTEROL 126 <=130 mg/dL 03/05/2024 3:39 AM CDT [facility] VLDL CHOLESTEROL 60(H) <=30 mg/dL 03/05/2024 3:39 AM CDT [facility] PROVIDER ORDERED STATUS RANDOM 03/05/2024 3:39 AM CDT [facility] Blood BLOOD SPECIMEN / Unknown Venipuncture / Unknown 03/04/2024 11:21 AM CDT 03/04/2024 11:22 AM CDT us Geraldine PIMENTEL CHEMISTRY Final R esult [facility] [address] [place] [address], * XR MAMMO KIRAN BILAT SCREEN (01/21/2024 [...] care provider. XR MAMMO KIRAN BILAT SCREEN [[id number]] CLINICAL HISTORY: This is an asymptomatic 53 y.o. patient. INDICATION FOR EXAM: Mammogram Screening. TECHNIQUE: CC & MLO views were obtained. This study was evaluated with the assistance of Computer-Aided Detection. Breast Tomosynthesis was used in interpretation. COMPARISON FILM: Yes 01/17/23 [facility] 06/10/21 [facility] FINDINGS: There are scattered areas of fibroglandular density. There are no dominant masses, suspicious micro calcifications or areas of architectural distortion. us Geraldine PIMENTEL MAMMO Final R esult * HPV HIGH RISK (05/31/2021 12:34 PM CDT) TYPE 16 Negative Negative 06/02/2021 3:09 PM CDT [facility] TYPE 18 Negative Negative 06/02/2021 3:09 PM CDT [facility] OTHER HIGH RISK TYPES Negative Negative 06/02/2021 3:09 PM CDT [facility] Other (Cervical) Non-Blood / Unknown 05/31/2021 12:34 PM CDT 06/01/2021 9:59 AM CDT Narrative [facility] - 06/02/2021 3:09 PM CDT HPV types 16, 18, 31, 33, 35, 39, 45, 51, 52, 56, 58, 59, 66 and 68 DNA were undetectable or below the pre-set threshold. Methodology: Gamida Cellas 4800 HPV Test us Geraldine PIMENTEL MICROBIOLOGY Final R esult [facility] [address] [place] [address], [place] from Last 3 Months or Most Recently Relevant to Health Maintenance Insurance [facility] Care Teams Bi Report Developer Relationship Specialty Start Date End Date Geraldine [place] [address] PCP - General Physician Reservationist 12/08/21
--- OUTSIDE RECORDS SUMMARY | 2024-09-11 17:07 | XMS_ITS | Clinical Summary ---
Author Organization [facility] Address [address] [place] [address] Care Team Providers Care Instructional Design Manager Name Role Phone Unassigned, Provider Primary Care Provider Unava ilable Source Comments You are receiving this document as you are listed as the primary care provider,follow-up provider, or the patient has been referred to you for consultation.This is in compliance with the Medicare and[facility] EHR Incentive Program,which states Providers who transition their patient to another setting of careor provider of care or refers their patient to another provider of care shouldprovide summary care record for each transition of care or referral. VUELOGIC Allergies Active Allergy Reactions Criticality Noted Date [...] this topic Insurance BCBS OUT OF STATE [facility] OUT OF STATE Care Teams Instructional Design Manager Relationship Specialty Start Date End Date Unassigned, Provider [address] [place] [address] PCP - General 07/07/00
== END 2024-09-11 19:52 | disposition home or self-care (01) ==
PROVIDERS: Emergency Provider Student in an Organized Health Care Education/Training Program; PCP Physician Assistant Medical
DX: I10 Essential (primary) hypertension (principal); R06.02 Shortness of breath
CPT/HCPCS: 36415; 71046; 80053; 83735; 84484; 85025; 85379; 99283; 99284; J7030